=== PATIENT | male | born 1960 | race Caucasian/White ===

== ENCOUNTER 2022-03-09 13:33 | Inpatient (IN) | payer OTHER ==
[2022-03-09] MEDS ORDERED: SODIUM CHLORIDE 0.9% 500 ML INFUS.BAG IV ONE (14:30)
[2022-03-09] MEDS ORDERED: ACETAMINOPHEN 1000 MG/100 ML BAG IVPB ONE (14:30)
[2022-03-09] MEDS ORDERED: ONDANSETRON 4 MG/2 ML VIAL IVPUSH ONE (14:30)
[2022-03-09 15:02] LABS: BASO % 0.4 % (0-2.0); HEMATOCRIT 45.6 % (35.4-49); LYMPH % 5.3 % (8-40); MCH 30.3 pg (25.7-33.7); MEAN CELL VOLUME 86.6 fl (80-96); MEAN PLT VOLUME 6.4 fl (7.5-11.1); MONO % 3.9 % (3.8-10.2); NEUT % 90.4 % (42.8-82.8); PLATELET COUNT 312 10^3/uL (134-434); RBC 5.26 M/mm3 (4.00-5.60); RDW 13.8 % (11.9-15.9); WHITE BLOOD COUNT 11.7 K/mm3 (4.0-10.0)
[2022-03-09 15:09] LABS: INR 1.07 (0.83-1.09); PROTHROMBIN TIME (PATIENT) 12.3 SEC (9.7-13.0)
[2022-03-09 15:12] LABS: ACTIVATED PTT 25.6 SECONDS (25.2-36.5)
[2022-03-09 15:25] LABS: ALBUMIN 4.5 g/dl (3.4-5.0); BLOOD UREA NITROGEN 20.2 mg/dL (7-18); CALCIUM 9.8 mg/dL (8.5-10.1)
[2022-03-09 15:29] LABS: BILIRUBIN,TOTAL 0.6 mg/dL (0.2-1)
[2022-03-09] MEDS ORDERED: FAMOTIDINE 20 MG/50 ML IVPB 20 MG in PREMIX 50 IVPB ONE (18:02)
[2022-03-09] MEDS ORDERED: MAG HYDROX/AL HYDROX/SIMETH 30 ML UNIT-DOSE CUP PO ONE (18:02)
[2022-03-09] MEDS ORDERED: MAG HYDROX/AL HYDROX/SIMETH 30 ML UNIT-DOSE CUP ONE (18:04)
[2022-03-09] MEDS ORDERED: FAMOTIDINE 20 MG/50 ML IVPB 20 MG/50 ML MG IVPB ONE (18:04)
[2022-03-09] MEDS ORDERED: PIPERACILLIN/TAZOB 4.5 GM 4.5 GM in DEXTROSE 5%-WATER 100 ML IVPB ONE (18:40)
[2022-03-09] MEDS ORDERED: PIPERACILLIN/TAZOB 4.5 GM 4.5 GM/100 ML BAG IVPB ONE (18:42)
[2022-03-09] MEDS ORDERED: LACTATED RINGERS SOLUTION 1,000 ML/1,000 ML INFUS.BAG IV SCH (18:45)
[2022-03-09] MEDS ORDERED: MECLIZINE HCL 12.5 MG TABLET PO ONE (19:50)
[2022-03-09] MEDS ORDERED: MECLIZINE HCL 12.5 MG TABLET ONE (20:12)
[2022-03-09 20:39] LABS: PH,URINE 6.5 (5.0-8.0); URINE APPEARANCE CLEAR; URINE BILIRUBIN NEGATIVE (NEGATIVE); URINE COLOR YELLOW; URINE GLUCOSE (UA) NEGATIVE (NEGATIVE); URINE KETONE 40 mg/dl (NEGATIVE)
[2022-03-09 20:40] LABS: URINE LEUK ESTERASE NEGATIVE (NEGATIVE); URINE NITRITE NEGATIVE (NEGATIVE); URINE PROTEIN TRACE (NEGATIVE); URINE UROBILINOGEN 0.2 mg/dL (0.2-1.0)
[2022-03-09] MEDS ORDERED: morphine SULFATE 4 MG/ML VIAL IVPUSH PRN (21:53)
[2022-03-09] MEDS ORDERED: SODIUM CHLORIDE 1,000 ML IV SCH (22:30)
[2022-03-09] MEDS: ACETAMINOPHEN 1000 MG/100 ML BAG IVPB PRN (23:13)
[2022-03-09] MEDS: ONDANSETRON 4 MG/2 ML VIAL IVPUSH SCH (23:13)
[2022-03-10] MEDS: PIPERACILLIN/TAZOB 3.375 GM 3.375 GM in DEXTROSE 5%-WATER - 50 ML IVPB SCH ×4 (01:57→16:32)
[2022-03-10] MEDS: ONDANSETRON 4 MG/2 ML VIAL IVPUSH SCH ×3 (04:00→17:31)
[2022-03-10] MEDS ORDERED: PIPERACILLIN/TAZOBACTAM 3.375 GM VIAL IVPB ONE (05:11)
[2022-03-10 08:42] LABS: HEMATOCRIT 38.3 % (35.4-49); HEMOGLOBIN 13.7 GM/dL (11.7-16.9); MCH 31.1 pg (25.7-33.7); MCHC 35.9 g/dl (32.0-35.9); MEAN CELL VOLUME 86.7 fl (80-96); MEAN PLT VOLUME 6.5 fl (7.5-11.1); PLATELET COUNT 247 10^3/uL (134-434); RBC 4.42 M/mm3 (4.00-5.60); WHITE BLOOD COUNT 8.2 K/mm3 (4.0-10.0)
[2022-03-10 09:14] LABS: CALCIUM 8.4 mg/dL (8.5-10.1)
[2022-03-10 09:15] LABS: BLOOD UREA NITROGEN 15.3 mg/dL (7-18); MAGNESIUM 2.4 mg/dL (1.8-2.4)
[2022-03-10 09:18] LABS: CREATININE 0.9 mg/dL (0.55-1.3); PHOSPHOROUS 2.1 mg/dL (2.5-4.9)
[2022-03-10 09:19] LABS: BILIRUBIN,TOTAL 0.8 mg/dL (0.2-1)
[2022-03-10 09:20] LABS: TOT PROT 6.3 g/dl (6.4-8.2)
[2022-03-10 09:21] LABS: ALBUMIN 3.5 g/dl (3.4-5.0)
[2022-03-10] MEDS ORDERED: ENOXAPARIN NA (PORCINE) 40 MG/0.4 ML DISP.SYRIN SQ SCH (10:00)
[2022-03-10] MEDS ORDERED: PANTOPRAZOLE 40 MG TABLET PO SCH (10:00)
[2022-03-10] MEDS: ACETAMINOPHEN 1000 MG/100 ML BAG IVPB PRN (10:03)
[2022-03-10] MEDS ORDERED: ASPIRIN 325 MG TABLET PO ONE (11:49)
[2022-03-10] MEDS ORDERED: ASPIRIN 325 MG TABLET PO SCH (12:00)
[2022-03-10] MEDS ORDERED: POTASSIUM PHOSPHATE 15 MM in SODIUM CHLORIDE 250 ML IVPB ONE ×2 (14:45→15:37)
[2022-03-10] MEDS ORDERED: ACETAMINOPHEN 1000 MG/100 ML BAG IVPB PRN (15:37)
[2022-03-10] MEDS ORDERED: PIPERACILLIN/TAZOB 3.375 GM 3.375 GM in DEXTROSE 5%-WATER - 50 ML IVPB SCH (19:00)
[2022-03-10] MEDS: ATORVASTATIN CA 80 MG TABLET (FP) PO SCH (21:05)
[2022-03-10] MEDS: CHLORHEXIDINE GLUCONATE 4% CLEANSER FOR DECOLONIZATION TP SCH (21:06)
[2022-03-10] MEDS: MUPIROCIN 2% TOPICAL OINTMENT FOR DECOLONIZATION NS SCH (21:06)
[2022-03-10] MEDS ORDERED: ATORVASTATIN CA 80 MG TABLET (FP) PO SCH (22:00)
[2022-03-11] MEDS: ONDANSETRON 4 MG/2 ML VIAL IVPUSH SCH ×5 (01:54→22:21)
[2022-03-11] MEDS ORDERED: BUPIVACAINE HCL/PF 0.5% (5MG/ML) 10 ML VIAL ONE (07:12)
[2022-03-11] MEDS ORDERED: LIDOCAINE 1%/EPI 1:100000 (20 ML MULTI DOSE VIAL) ONE (07:13)
[2022-03-11] MEDS ORDERED: GENTAMICIN SO4 80 MG/2 ML VIAL ONE (07:19)
[2022-03-11] MEDS ORDERED: THROMBIN (BOVINE) 5,000 UNIT VIAL TP ONE ×2 (07:22→07:37)
[2022-03-11] MEDS ORDERED: VANCOMYCIN 1,000 MG VIAL (RESTRICTED TO ID ONLY) ONE (07:27)
[2022-03-11] MEDS ORDERED: VANCOMYCIN 1 GM in D5W (PRE-DOCKED) 1,000 MG/250 ML IVPB ONE (07:36)
[2022-03-11] MEDS ORDERED: ceFAZolin SODIUM 1 GM VIAL IVPB ONE (07:36)
[2022-03-11] MEDS ORDERED: GENTAMICIN SO4 80 MG/2 ML VIAL IVPB ONE (07:37)
[2022-03-11] MEDS ORDERED: LIDOCAINE 1%/EPI 1:100000 (20 ML MULTI DOSE VIAL) IJ ONE (07:37)
[2022-03-11] MEDS ORDERED: HYDROGEN PEROXIDE 473 ML PO ONE (07:39)
[2022-03-11] MEDS ORDERED: BUPIVACAINE HCL/PF 0.5% (5MG/ML) 10 ML VIAL IJ ONE (07:40)
[2022-03-11] MEDS ORDERED: BACITRACIN 15 GM TUBE TOPICAL OINTMENT ONE (08:09)
[2022-03-11 08:34] LABS: CALCIUM 8.5 mg/dL (8.5-10.1)
[2022-03-11 08:35] LABS: ALBUMIN 3.8 g/dl (3.4-5.0)
[2022-03-11 08:36] LABS: EOS % 0.8 % (0-4.5); HEMOGLOBIN 14.3 GM/dL (11.7-16.9); LYMPH % 16.5 % (8-40); MCH 30.3 pg (25.7-33.7); MEAN CELL VOLUME 86.8 fl (80-96); MONO % 7.3 % (3.8-10.2); NEUT % 74.4 % (42.8-82.8); PLATELET COUNT 255 10^3/uL (134-434); RBC 4.73 M/mm3 (4.00-5.60); RDW 13.7 % (11.9-15.9); WHITE BLOOD COUNT 6.5 K/mm3 (4.0-10.0)
[2022-03-11 08:37] LABS: CREATININE 0.9 mg/dL (0.55-1.3)
[2022-03-11 08:39] LABS: BILIRUBIN,TOTAL 0.6 mg/dL (0.2-1)
[2022-03-11 08:42] LABS: TOT PROT 6.7 g/dl (6.4-8.2)
[2022-03-11] MEDS ORDERED: LACTATED RINGERS SOLUTION 1,000 ML/1,000 ML INFUS.BAG IV SCH (09:00)
[2022-03-11] MEDS: MUPIROCIN 2% TOPICAL OINTMENT FOR DECOLONIZATION NS SCH ×2 (09:26→21:55)
[2022-03-11] MEDS: PANTOPRAZOLE 40 MG TABLET PO SCH (09:28)
[2022-03-11] MEDS ORDERED: ASPIRIN 81 MG CHEWABLE TABLETS PO SCH ×2 (10:00)
[2022-03-11] MEDS ORDERED: ACETAMINOPHEN 1000 MG/100 ML BAG IVPB ONE (11:33)
[2022-03-11] MEDS: ATORVASTATIN CA 80 MG TABLET (FP) PO SCH (21:55)
[2022-03-11] MEDS: CHLORHEXIDINE GLUCONATE 4% CLEANSER FOR DECOLONIZATION TP SCH (21:55)
[2022-03-12] MEDS: ONDANSETRON 4 MG/2 ML VIAL IVPUSH SCH ×4 (05:10→23:46)
[2022-03-12 07:52] LABS: BASO % 0.8 % (0-2.0); EOS % 1.9 % (0-4.5); HEMATOCRIT 41.8 % (35.4-49); HEMOGLOBIN 14.4 GM/dL (11.7-16.9); LYMPH % 25.7 % (8-40); MCH 29.9 pg (25.7-33.7); MCHC 34.6 g/dl (32.0-35.9); MEAN CELL VOLUME 86.5 fl (80-96); MEAN PLT VOLUME 7.1 fl (7.5-11.1); MONO % 9.2 % (3.8-10.2); NEUT % 62.4 % (42.8-82.8); PLATELET COUNT 256 10^3/uL (134-434); RBC 4.83 M/mm3 (4.00-5.60); RDW 13.7 % (11.9-15.9); WHITE BLOOD COUNT 5.6 K/mm3 (4.0-10.0)
[2022-03-12 08:12] LABS: BLOOD UREA NITROGEN 20.5 mg/dL (7-18); CALCIUM 8.6 mg/dL (8.5-10.1)
[2022-03-12 08:13] LABS: ALBUMIN 3.5 g/dl (3.4-5.0)
[2022-03-12 08:15] LABS: PHOSPHOROUS 2.8 mg/dL (2.5-4.9)
[2022-03-12 08:17] LABS: BILIRUBIN,TOTAL 0.6 mg/dL (0.2-1); TOT PROT 6.5 g/dl (6.4-8.2)
[2022-03-12] MEDS: LACTOBACILLUS ACIDOPHILUS 1 TABLET PO SCH (09:49)
[2022-03-12] MEDS: PANTOPRAZOLE 40 MG TABLET PO SCH (09:49)
[2022-03-12] MEDS: MUPIROCIN 2% TOPICAL OINTMENT FOR DECOLONIZATION NS SCH ×2 (09:49→21:34)
[2022-03-12] MEDS: ACETAMINOPHEN 1000 MG/100 ML BAG IVPB PRN (12:09)
[2022-03-12] MEDS: ATORVASTATIN CA 80 MG TABLET (FP) PO SCH (21:34)
[2022-03-12] MEDS: CHLORHEXIDINE GLUCONATE 4% CLEANSER FOR DECOLONIZATION TP SCH (21:34)
[2022-03-13] MEDS: ACETAMINOPHEN 1000 MG/100 ML BAG IVPB PRN (03:52)
[2022-03-13] MEDS: ONDANSETRON 4 MG/2 ML VIAL IVPUSH SCH ×4 (05:37→23:00)
[2022-03-13] MEDS: PIPERACILLIN/TAZOB 3.375 GM 3.375 GM in DEXTROSE 5%-WATER - 50 ML IVPB SCH (05:38)
[2022-03-13] MEDS: MUPIROCIN 2% TOPICAL OINTMENT FOR DECOLONIZATION NS SCH ×2 (09:49→21:20)
[2022-03-13] MEDS: LACTOBACILLUS ACIDOPHILUS 1 TABLET PO SCH (09:49)
[2022-03-13] MEDS: PANTOPRAZOLE 40 MG TABLET PO SCH (09:49)
[2022-03-13] MEDS: CHLORHEXIDINE GLUCONATE 4% CLEANSER FOR DECOLONIZATION TP SCH (21:20)
[2022-03-13] MEDS: ATORVASTATIN CA 80 MG TABLET (FP) PO SCH (21:20)
[2022-03-14] MEDS ORDERED: ACETAMINOPHEN 1000 MG/100 ML BAG IVPB STA (00:21)
[2022-03-14] MEDS: ONDANSETRON 4 MG/2 ML VIAL IVPUSH SCH ×4 (05:57→22:02)
[2022-03-14] MEDS: LACTOBACILLUS ACIDOPHILUS 1 TABLET PO SCH (09:28)
[2022-03-14] MEDS: MUPIROCIN 2% TOPICAL OINTMENT FOR DECOLONIZATION NS SCH ×2 (09:28→22:02)
[2022-03-14] MEDS: PANTOPRAZOLE 40 MG TABLET PO SCH (09:28)
[2022-03-14] MEDS ORDERED: ACETAMINOPHEN 1000 MG/100 ML BAG IVPB PRN (20:03)
[2022-03-14] MEDS: ATORVASTATIN CA 80 MG TABLET (FP) PO SCH (22:02)
[2022-03-14] MEDS: CHLORHEXIDINE GLUCONATE 4% CLEANSER FOR DECOLONIZATION TP SCH (22:02)
[2022-03-15] MEDS: ONDANSETRON 4 MG/2 ML VIAL IVPUSH SCH ×4 (07:33→23:17)
[2022-03-15 08:02] LABS: HEMATOCRIT 42.5 % (35.4-49); HEMOGLOBIN 14.5 GM/dL (11.7-16.9); MCHC 34.2 g/dl (32.0-35.9); MEAN CELL VOLUME 87.8 fl (80-96); MEAN PLT VOLUME 7.2 fl (7.5-11.1); PLATELET COUNT 271 10^3/uL (134-434); RBC 4.85 M/mm3 (4.00-5.60); RDW 13.8 % (11.9-15.9); WHITE BLOOD COUNT 5.8 K/mm3 (4.0-10.0)
[2022-03-15 08:07] LABS: CALCIUM 8.5 mg/dL (8.5-10.1)
[2022-03-15 08:11] LABS: CREATININE 0.9 mg/dL (0.55-1.3); PHOSPHOROUS 3.3 mg/dL (2.5-4.9)
[2022-03-15] MEDS: PANTOPRAZOLE 40 MG TABLET PO SCH (10:44)
[2022-03-15] MEDS: LACTOBACILLUS ACIDOPHILUS 1 TABLET PO SCH (10:44)
[2022-03-15] MEDS: MUPIROCIN 2% TOPICAL OINTMENT FOR DECOLONIZATION NS SCH (10:48)
[2022-03-15] MEDS ORDERED: ACETAMINOPHEN 1000 MG/100 ML BAG IVPB PRN (14:22)
[2022-03-15 14:54] VITALS: RESP 18
[2022-03-15 15:39] VITALS: BMI 23.6
[2022-03-15] MEDS: ATORVASTATIN CA 80 MG TABLET (FP) PO SCH (21:26)
[2022-03-15] MEDS: ACETAMINOPHEN 325 MG TABLET (FP) PO PRN (21:26)
[2022-03-16] MEDS: ONDANSETRON 4 MG/2 ML VIAL IVPUSH SCH ×4 (06:06→23:35)
[2022-03-16 09:23] LABS: HEMOGLOBIN 15.5 GM/dL (11.7-16.9); MCH 30.3 pg (25.7-33.7); MCHC 34.5 g/dl (32.0-35.9); MEAN CELL VOLUME 87.8 fl (80-96); PLATELET COUNT 310 10^3/uL (134-434); RBC 5.12 M/mm3 (4.00-5.60); WHITE BLOOD COUNT 6.1 K/mm3 (4.0-10.0)
[2022-03-16] MEDS: LACTOBACILLUS ACIDOPHILUS 1 TABLET PO SCH (09:36)
[2022-03-16] MEDS: PANTOPRAZOLE 40 MG TABLET PO SCH (09:36)
[2022-03-16 09:48] LABS: ALBUMIN 3.9 g/dl (3.4-5.0); BLOOD UREA NITROGEN 21.7 mg/dL (7-18); CALCIUM 9.3 mg/dL (8.5-10.1); MAGNESIUM 2.2 mg/dL (1.8-2.4)
[2022-03-16 09:51] LABS: PHOSPHOROUS 3.2 mg/dL (2.5-4.9)
[2022-03-16 09:52] LABS: TOT PROT 7.2 g/dl (6.4-8.2)
[2022-03-16 09:53] LABS: BILIRUBIN,TOTAL 0.4 mg/dL (0.2-1)
[2022-03-16] MEDS: ACETAMINOPHEN 325 MG TABLET (FP) PO PRN ×2 (12:39→21:25)
[2022-03-16] MEDS: ATORVASTATIN CA 80 MG TABLET (FP) PO SCH (21:25)
[2022-03-17] MEDS: ONDANSETRON 4 MG/2 ML VIAL IVPUSH SCH ×2 (05:48→10:44)
[2022-03-17] MEDS ORDERED: ASPIRIN 81 MG CHEWABLE TABLETS PO SCH (10:00)
[2022-03-17] MEDS: PANTOPRAZOLE 40 MG TABLET PO SCH (10:38)
[2022-03-17] MEDS: LACTOBACILLUS ACIDOPHILUS 1 TABLET PO SCH (10:38)
[2022-03-17 14:04] VITALS: BP 138/84; PULSE 72; TEMP 98.8
== END 2022-03-17 18:01 | disposition home or self-care (01) | DRG 45 ==
LOC: JER 13:33 → JERBED 18:41 → J7W 22:02 → JICU 03-10 15:19 → J6S 03-15 14:20
PROVIDERS: ADMIT Internal Medicine
DX: I63.9 Cerebral infarction, unspecified (principal); R11.2 Nausea with vomiting, unspecified; K21.9 Gastro-esophageal reflux disease without esophagitis; I10 Essential (primary) hypertension; E78.5 Hyperlipidemia, unspecified; M54.16 Radiculopathy, lumbar region; R42 Dizziness and giddiness; M54.2 Cervicalgia; K52.9 Noninfective gastroenteritis and colitis, unspecified; I65.22 Occlusion and stenosis of left carotid artery; R51.9 Headache, unspecified
CPT/HCPCS: 0241U-QW; 36415; 70450-TC; 70544-TC; 70547-TC; 70551-TC; 71045-TC-FY; 74176-TC; 74177-TC; 76705-TC; 80048; 80053; 80061; 81003; 82136; 82272; 82607; 83036; 83690; 83735; 83918; 84100; 84439; 84443; 84484; 85025; 85027; 85610; 85651; 85730; 86140; 86780; 86850; 86900; 86901; 87045; 87046; 87086; 87186; 87205; 87209; 87324; 87449; 93005; 93010; 93306-TC; 93880-TC; 97116-GP; 97162-GP; 99285-25; C9803-CS; Q9967; U0003; U0005